=== PATIENT | male | born 1990 | race Caucasian/White ===

== ENCOUNTER 2023-02-13 15:42 | Emergency (ER) | payer OTHER ==
[~2023-02-13] VITALS: Ht 193 cm; Wt 96.5 kg
[2023-02-13 15:56] VITALS: BP 155/95
[2023-02-13 16:03] VITALS: BP 156/94
[2023-02-13 16:15] VITALS: BP 145/87
[2023-02-13 16:30] VITALS: BP 145/87
[2023-02-13 16:45] VITALS: BP 146/90
[2023-02-13 16:46] VITALS: BP 146/90
== END 2023-02-13 16:47 | DRG 951 ==
LOC: ED 15:42
DX: Z03.6 Encounter for observation for suspected toxic effect from ingested substance ruled out (principal)

== ENCOUNTER 2023-02-14 13:32 | Emergency (ER) | payer OTHER ==
[~2023-02-14] VITALS: Ht 193 cm; Wt 104.0 kg
[2023-02-14] VITALS (21 sets, daily range): BP systolic 117–147; BP diastolic 70–98
[2023-02-14 13:53] LABS: BASO% 0.2 % (0-3); HEMATOCRIT 38.2 % (39.0-50.0); HEMOGLOBIN 13.6 g/dl (14.0-18.0); IMMATURE GRANULOCYTES 0.2 % (0.0-5.0); MEAN CELL VOLUME 93.4 fL CALC (80.0-100.0); MEAN CORPUSCULAR HGB 33.3 pG CALC (26.0-32.0); MEAN CORPUSCULAR HGB CONC 35.6 g/dL CAL (32.0-36.0); MONO% 10.5 % (2-13); NEUT# 20.46 thou/uL (1.82-7.42); NEUT% 85.1 % (42-76); RED BLOOD COUNT 4.09 mill/uL (4.70-6.10); RED CELL DISTRI WIDTH 11.4 % (11.5-15.5)
[2023-02-14 14:02] LABS: ALBUMIN 4.9 g/dL (3.2-5.0); ALKALINE PHOSPHATASE 56 u/l (38-126); ANION GAP 20 (6-22 (CALC)); BILIRUBIN, TOTAL 1.9 mg/dL (0.2-1.3); BUN 30 mg/dL (9-20); BUN/CREATININE RATIO 22 (12-20 (CALC)); CARBON DIOXIDE 22 mmol/l (22-30); CHLORIDE 100 mmol/l (95-108); CREATININE 1.4 mg/dL (0.7-1.3); GFR FOR AFR.AMER. > 60 ML/MIN (>=60 (CALC)); GFR OTHER RACES 58 ML/MIN (>=60 (CALC)); LIPASE 53 u/l (23-300); MAGNESIUM 2.4 mg/dL (1.6-2.3); POTASSIUM 4.5 mmol/l (3.5-5.1); SGOT/AST 171 u/l (17-59); SODIUM 137 mmol/l (137-146); TOTAL PROTEIN 8.3 g/dL (6.3-8.2)
[2023-02-14 14:13] LABS: INTERNATIONAL NORMALIZED RATIO 1.2 RATIO (0.7-1.3); PROTHROMBIN TIME 11.6 SECONDS (9.0-12.5)
[2023-02-14 14:29] LABS: CPK > 8000 u/l (55-170)
[2023-02-14 14:33] LABS: TSH, 3RD GENERATION 0.66 uIU/mL (0.47 - 4.68)
[2023-02-14 15:47] LABS: URINE BILIRUBIN - DIPSTICK SMALL (NEGATIVE); URINE BLOOD DIPSTICK MODERATE (NEGATIVE); URINE COLOR YELLOW; URINE GLUCOSE - DIPSTICK NEGATIVE (NEGATIVE); URINE KETONE 15 mg/dL (NEGATIVE); URINE LEUK ESTERASE NEGATIVE (NEGATIVE); URINE PROTEIN - DIPSTICK 100 mg/dL (NEG-TRACE); URINE SPECIFIC GRAVITY >=1.030; URINE UROBILINOGEN - DIPSTICK 0.2 E.U./dL (0.2)
[2023-02-14 15:54] LABS: URINE NITRITE - DIPSTICK NEGATIVE (Negative)
[2023-02-14 15:58] LABS: URINE CASTS FEW lpf (NONE-RARE)
== END 2023-02-14 19:38 | disposition short-term general hospital (02) | DRG 605 ==
LOC: ED 13:32
PROVIDERS: Family Medicine
PROC: 0HQ1XZZ Repair Face Skin, External Approach (ICD-10-PCS; principal; 2023-02-14)
PROC: 0BH17EZ Insertion of Endotracheal Airway into Trachea, Via Natural or Artificial Opening (ICD-10-PCS; 2023-02-14)
PROC: 5A1935Z Respiratory Ventilation, Less than 24 Consecutive Hours (ICD-10-PCS; 2023-02-14)
PROC: 0T9B70Z Drainage of Bladder with Drainage Device, Via Natural or Artificial Opening (ICD-10-PCS; 2023-02-14)
PROC: 05HM33Z Insertion of Infusion Device into Right Internal Jugular Vein, Percutaneous Approach (ICD-10-PCS; 2023-02-14)
DX: S01.81XA Laceration without foreign body of other part of head, initial encounter (principal); N17.9 Acute kidney failure, unspecified; M62.82 Rhabdomyolysis; X83.8XXA Intentional self-harm by other specified means, initial encounter; Y92.149 Unspecified place in prison as the place of occurrence of the external cause